=== PATIENT | male | born 1950 | race Caucasian/White ===

== ENCOUNTER 2022-09-24 14:42 | Emergency (ER) | payer MEDICARE, OTHER ==
[~2022-09-24] VITALS: Ht 177.8 cm; Wt 88.6 kg
[2022-09-24 14:50] VITALS: BP 150/75
[2022-09-24 15:39] LABS: Basophils # (auto) 0 10 ^3/uL (0-0.2); Basophils % (auto) 0.9 % (0.0-2.0); Eosinophils # (auto) 0.5 10 ^3/uL (0-0.8); Eosinophils % (auto) 8.9 % (0.0-7.0); Hematocrit 42.3 % (41.0-53.0); Hemoglobin 14.2 g/dL (13.5-17.5); Lymphocytes # (auto) 1.7 10 ^3/uL (0.4-5.4); Lymphocytes % (auto) 31.5 % (10.0-50.0); Mean Corpuscular Hemoglobin 31.5 pg (28.0-32.0); Mean Corpuscular Hgb Conc. 33.6 g/dL (32.0-36.0); Mean Corpuscular Volume 93.6 fL (80.0-100.0); Monocytes # (auto) 0.6 10 ^3/uL (0-1.3); Monocytes % (auto) 10.9 % (0.0-12.0); Neutrophils # (auto) 2.5 10 ^3/uL (1.6-8.6); Neutrophils % (auto) 47.8 % (37.0-80.0); Nucleated Red Blood Cells % 0.1 %; Red Blood Cells 4.52 10^6/uL (4.5-5.90); Red Cell Distribution Width 13.4 % (11.8-14.3); White Blood Cell 5.3 10^3/uL (4.4-10.8)
[2022-09-24 16:17] LABS: Albumin 3.7 g/dL (3.4-5.0); BUN/Creatinine Ratio 15.5; Bilirubin, Total 0.4 mg/dL (0.2-1.0); Calcium 8.9 mg/dL (8.5-10.1); Potassium 4.2 mmol/L (3.5-5.1); Total Protein 7.1 g/dL (6.4-8.2)
[2022-09-24] MEDS ORDERED: ASPirin 325 MG TAB PO ONE (17:15)
[2022-09-24] MEDS ORDERED: NITROGLYCERIN 0.4 MG SL TAB SL ONE (17:15)
== END 2022-09-24 20:29 | disposition left against medical advice (07) ==
LOC: ER 14:42
DX: R07.89 Other chest pain (principal); E78.5 Hyperlipidemia, unspecified; E03.9 Hypothyroidism, unspecified
CPT/HCPCS: 36415; 71045; 80053; 84484; 85025; 93005

== ENCOUNTER 2023-12-09 10:44 | Inpatient (IN) | payer MEDICARE, OTHER ==
[~2023-12-09] VITALS: Ht 177.8 cm; Wt 89.9 kg
[2023-12-09 11:38] LABS: Basophils # (auto) 0 10 ^3/uL (0-0.2); Basophils % (auto) 0.8 % (0.0-2.0); Eosinophils # (auto) 0.3 10 ^3/uL (0-0.8); Eosinophils % (auto) 5.7 % (0.0-7.0); Hematocrit 42.2 % (41.0-53.0); Hemoglobin 14.5 g/dL (13.5-17.5); Lymphocytes # (auto) 2.1 10 ^3/uL (0.4-5.4); Lymphocytes % (auto) 38.2 % (10.0-50.0); Mean Corpuscular Hemoglobin 32.1 pg (28.0-32.0); Mean Corpuscular Hgb Conc. 34.4 g/dL (32.0-36.0); Mean Corpuscular Volume 93.5 fL (80.0-100.0); Monocytes # (auto) 0.6 10 ^3/uL (0-1.3); Monocytes % (auto) 11.2 % (0.0-12.0); Neutrophils # (auto) 2.4 10 ^3/uL (1.6-8.6); Neutrophils % (auto) 44.1 % (37.0-80.0); Nucleated Red Blood Cells % 0.1 %; Red Blood Cells 4.51 10^6/uL (4.5-5.90); Red Cell Distribution Width 13.2 % (11.8-14.3); White Blood Cell 5.5 10^3/uL (4.4-10.8)
[2023-12-09 11:45] LABS: Alanine Aminotransferase 21 U/L (7-40); Albumin 4.2 g/dL (3.2-4.8); Alkaline Phosphatase 62 U/L (46-116); Anion Gap 6 (5-15); Aspartate Aminotransferase 19 U/L (13-40); BUN/Creatinine Ratio 16.8 (10.0-20.0); Blood Urea Nitrogen 17 mg/dL (9-23); Calcium 9.5 mg/dL (8.5-10.1); Carbon Dioxide 27 mmol/L (20-30); Chloride 107 mmol/L (98-107); Glucose 112 mg/dL (74-106); Potassium 4.3 mmol/L (3.5-5.1); Sodium 140 mmol/L (136-145)
[2023-12-09 11:46] LABS: Bilirubin, Total 0.6 mg/dL (0.2-1.0); Total Protein 6.3 g/dL (5.7-8.2)
[2023-12-09] MEDS ORDERED: METO25TA93 PO (14:04)
[2023-12-09] MEDS ORDERED: LEV25T PO (14:04)
[2023-12-09] MEDS ORDERED: PRAV20TA3 PO (14:04)
[2023-12-09] MEDS: MAGNESIUM SULFATE 1GM/100ML 100 ML IV ONE (14:15)
[2023-12-09] MEDS: METOPROLOL SUCCINATE XL 50 MG TAB PO SCH (14:30)
[2023-12-09] MEDS ORDERED: MORPHINE SULFATE INJ 2 MG/ml SYRG IV PRN (14:45)
[2023-12-09] MEDS ORDERED: NITROGLYCERIN 0.4 MG SL TAB SL PRN (14:45)
[2023-12-09 15:20] LABS: Triglycerides 144 mg/dL (< 150)
[2023-12-09 15:21] LABS: LDL Cholesterol 101 mg/dL (< 100)
[2023-12-09 15:22] LABS: Cholesterol 162 mg/dL (< 200); HDL Cholesterol 40 mg/dL (40-59)
[2023-12-09 23:40] VITALS: BP 130/79; PULSE 61; RESP 18; TEMP 97.7; O2SAT 97
[2023-12-10] VITALS (9 sets, daily range): BP systolic 126–142; BP diastolic 66–87; PULSE 54–65; RESP 16–19; TEMP 97.4–98.1; O2SAT 96–98
[2023-12-10] MEDS: MAGNESIUM OXIDE 400 MG TAB PO SCH (00:24)
[2023-12-10 07:04] LABS: Chloride 108 mmol/L (98-107); Potassium 4.4 mmol/L (3.5-5.1); Sodium 139 mmol/L (136-145)
[2023-12-10 07:05] LABS: Anion Gap 5 (5-15); Calcium 9.9 mg/dL (8.7-10.4); Carbon Dioxide 26 mmol/L (20-30)
[2023-12-10 07:08] LABS: Basophils # (auto) 0.1 10 ^3/uL (0-0.2); Basophils % (auto) 1.2 % (0.0-2.0); Eosinophils # (auto) 0.4 10 ^3/uL (0-0.8); Eosinophils % (auto) 7.9 % (0.0-7.0); Hematocrit 40.6 % (41.0-53.0); Hemoglobin 13.8 g/dL (13.5-17.5); Lymphocytes # (auto) 1.9 10 ^3/uL (0.4-5.4); Mean Corpuscular Hemoglobin 31.8 pg (28.0-32.0); Mean Corpuscular Hgb Conc. 33.9 g/dL (32.0-36.0); Mean Corpuscular Volume 93.6 fL (80.0-100.0); Monocytes # (auto) 0.6 10 ^3/uL (0-1.3); Neutrophils % (auto) 39.9 % (37.0-80.0); Nucleated Red Blood Cells % 0.1 %; Red Blood Cells 4.34 10^6/uL (4.5-5.90); Red Cell Distribution Width 13.2 % (11.8-14.3)
[2023-12-10 07:10] LABS: Glucose 96 mg/dL (74-106)
[2023-12-10 07:11] LABS: BUN/Creatinine Ratio 14.1 (10.0-20.0); Blood Urea Nitrogen 14 mg/dL (9-23)
[2023-12-10 07:12] LABS: Magnesium 2.2 mg/dL (1.6-2.6)
[2023-12-10] MEDS: LEVOTHYROXINE SODIUM 25 MCG TAB PO SCH (09:48)
[2023-12-10] MEDS: PRAVASTATIN SODIUM 20 MG TAB PO SCH (09:56)
[2023-12-11 01:00] VITALS: BP 102/55; PULSE 60; RESP 19; TEMP 98.1; O2SAT 96
[2023-12-11 05:00] VITALS: BP 133/77; PULSE 60; RESP 19; TEMP 98.1; O2SAT 97
[2023-12-11 08:00] VITALS: PULSE 62; RESP 18; O2SAT 96
[2023-12-11 10:13] VITALS: BP 128/82; PULSE 63; RESP 18; TEMP 97.9; O2SAT 96
[2023-12-11 10:18] VITALS: BP 128/82; PULSE 63; RESP 17; TEMP 97.9; O2SAT 96
[2023-12-11] MEDS ORDERED: METO25TA93 PO (10:40)
[2023-12-11] MEDS ORDERED: MAGN400T40 PO (10:40)
[2023-12-11 10:53] VITALS: BP 128/82; PULSE 63; RESP 18; TEMP 36.6; O2SAT 96
== END 2023-12-11 11:55 | disposition home or self-care (01) | DRG 310 ==
LOC: ER 10:44 → TELE 14:46 → TELE-WESTW 14:46
PROVIDERS: ADMIT Registered Nurse; ATTEND Family Medicine
DX: I49.5 Sick sinus syndrome (principal); E03.9 Hypothyroidism, unspecified; I10 Essential (primary) hypertension; G90.8 Other disorders of autonomic nervous system; I07.1 Rheumatic tricuspid insufficiency; E78.00 Pure hypercholesterolemia, unspecified; Z86.73 Personal history of transient ischemic attack (TIA), and cerebral infarction without residual deficits; Z83.3 Family history of diabetes mellitus; N52.9 Male erectile dysfunction, unspecified; K44.9 Diaphragmatic hernia without obstruction or gangrene; Z79.899 Other long term (current) drug therapy; F41.9 Anxiety disorder, unspecified
CPT/HCPCS: 36415; 71046; 80048; 80053; 80061; 83735; 83880; 84443; 84484; 85025; 93005; 93306; G0378